=== PATIENT | female | born 1940 | race African-American/Black ===

== ENCOUNTER 2018-07-11 02:38 | Emergency (ER) | payer OTHER ==
[~2018-07-11] VITALS: Ht 154.9 cm; Wt 102.1 kg
[~2018-07-11 02:38] MED LIST: ACETAMINOPHEN-1 EAC1 ORAL; ASPIR 8181 MG ORAL; BENAZEPRIL HCL40 MG ORAL; CATAPRES-TTS 31 EACH TDERMAL; DOXAZOSIN MESYLA1 MG ORAL; FUROSEMIDE20 M1 ORAL; LEVAQUIN500 MG ORAL; LEVOTHYROXINE25 MCG ORAL; PHENAZOPYRIDIN100 MG ORAL; STARLIX60 MG ORAL; TANZEUM30 MG/0.5 SQ
--- NOTE | 2018-07-11 02:50 | NUR ---
ED Nurse Note: PATIENT AMBULATED WITH WALKER TO ED C/O DIZZINESS X 2. REPORTS NAUSEA. DENIES VOMITTING OR DIARRHEA
[2018-07-11 02:53] VITALS: BP 147/66
--- NOTE | 2018-07-11 03:05 | Emergency Room Report ---
History of Present Illness General Chief Complaint: Dizziness Source: Patient Present Illness [facility] This is a 78-year-old female with history diabetes high blood pressure. She presents with chief complaint of dizziness. Onset for 2 days. She complaining of feeling lightheaded and room spinning. Nausea and vomiting. No diarrhea. No fever or chills. No focal deficit. Nothing made it better. Standing up and walking made it worse. Allergies: Coded Allergies: No Known Allergies (Unverified , 02/03/16) Patient History Past Medical History: see triage record, old chart reviewed, DM, HTN Past Surgical History: other Pertinent Family History: none Social History: Denies: smoking Now: No Immunizations: other Reviewed Nursing Documentation: PMH: Agreed; PSxH: Agreed Nursing Documentation-PMH Past Medical History: No History, Except For Hx Hypertension: Yes Hx Diabetes: Yes Review of Systems Eye: Denies: eye pain, blurred vision ENT: Denies: ear pain, nose congestion, throat swelling Respiratory: Denies: cough, shortness of breath Cardiovascular: Denies: chest pain, palpitations Gastrointestinal: Reports: nausea, vomiting; Denies: abdominal pain, diarrhea Musculoskeletal: Denies: back pain, joint pain Skin: Denies: rash Neurological: Reports: dizziness; Denies: headache, numbness Endocrine: Denies: increased thirst, increased urine Hematologic/Lymphatic: Denies: easy bruising All Other Systems: negative except mentioned in HPI Physical Exam Vital Signs Date Time Temp Pulse Resp B/P (MAP) Pulse Ox O2 Delivery O2 Flow Rate FiO2 07/11/18 02:47 97.9 80 19 95 Room Air 07/11/18 02:53 147/66 vital signs unremarkable Sp02 EP Interpretation: reviewed, normal General Appearance: well appearing, no apparent distress, alert Head: normocephalic, atraumatic Eyes: bilateral eye PERRL, bilateral eye EOMI ENT: hearing grossly normal, normal pharynx Neck: full range of motion, supple, no meningismus Respiratory: chest non-tender, lungs clear, normal breath sounds Cardiovascular #1: regular rate, rhythm, no murmur Gastrointestinal: normal bowel sounds, non tender, no mass, no organomegaly, no bruit, non-distended Musculoskeletal: back normal, gait/station normal, normal range of motion Psychiatric: mood/affect normal Skin: warm/dry Medical Decision Making Diagnostic Impression: Primary Impression: Dizziness of unknown cause ER Course Patient presents with dizziness and vomiting. This may be secondary to vertigo versus dehydration. He felt better now. CT scan is negative of the head. No evidence of TIA or CVA. No evidence of any obstruction. We'll discharge home. Rhythm Strip Diag. Results EP Interpretation: yes Rate: 80 Rhythm: NSR, no PVC's, no ectopy CT/MRI/US Diagnostic Results CT/MRI/US Diagnostic Results : Imaging Test Ordered: CT head Impression negative per radiologist Last Vital Signs Date Time Temp Pulse Resp B/P (MAP) Pulse Ox O2 Delivery O2 Flow Rate FiO2 07/11/18 02:53 97.9 76 19 147/66 95 Room Air Status: improved Disposition: HOME, SELF-CARE Condition: Stable Scripts Meclizine Hcl* (MECLIZINE*) 25 Mg Tablet 25 MG ORAL THREE TIMES A DAY, #30 TAB Prov: Michael Mahan MD 07/11/18 Patient Instructions: Dizziness Additional Instructions: Increase fluids. Follow-up with your doctor in 7 days. Return if worse. Michael Mahan MD July 11, 2018 03:05
--- NOTE | 2018-07-11 03:15 | NUR ---
ED Nurse Note: IV ACCESS ESTABLISHED. BLOOD AND URINE COLLECTED; SENT DOWN TO LAB.
[2018-07-11 03:41] LABS: APPEARANCE,URINE CLEAR; BILIRUBIN, URINE NEGATIVE (NEGATIVE); COLOR,URINE PALE YELLOW; GLUCOSE, URINE (UA) 4+ (NEGATIVE); KETONES,URINE NEGATIVE (NEGATIVE); LEUKOCYTE ESTERASE ,URINE 1+ (NEGATIVE); NITRITE,URINE NEGATIVE (NEGATIVE); PH,URINE 6 (4.5-8.0); PROTEIN,URINE NEGATIVE (NEGATIVE); UROBILINOGEN,URINE NORMAL MG/DL (0.0-1.0)
[2018-07-11 03:42] LABS: BASOPHILS % (AUTO) 0.8 % (0.0-2.0); EOSINOPHILS % (AUTO) 1.1 % (0.0-3.0); HEMATOCRIT 36.8 % (37.0-47.0); HEMOGLOBIN 12.2 G/DL (12.0-16.0); LYMPHOCYTES % (AUTO) 30.9 % (20.0-45.0); MEAN CORPUSCULAR VOLUME 82 FL (80-99); NEUTROPHILS % (AUTO) 58.3 % (45.0-75.0); PLATELET COUNT 290 K/UL (150-450); WHITE BLOOD COUNT 7.1 K/UL (4.8-10.8)
[2018-07-11 03:50] LABS: ANION GAP 9 mmol/L (5-15); BLOOD UREA NITROGEN 20 mg/dL (7-18); CARBON DIOXIDE 29 MMOL/L (21-32); CHLORIDE 101 MMOL/L (98-107); CREATININE 1.1 MG/DL (0.55-1.30); SODIUM 139 MMOL/L (136-145)
[2018-07-11] MEDS ORDERED: MECLIZINE HCL25 MG ORAL (04:06)
--- NOTE | 2018-07-11 04:45 | NUR ---
ER DISCHARGE NOTE: Patient is cleared to be discharged per ERMD, pt is aox4, on room air, with stable vital signs. accompanied by family member. pt was given dc and prescription instructions, pt was able to verbalize understanding, pt id band and iv site removed without complications. pt is able to ambulate with walker. pt took all belongings.
[2018-07-11 04:50] VITALS: BP 147/66
--- NOTE | 2018-07-11 09:54 | Diagnostic Imaging Report ---
Indication: Headache dizziness Technique: Contiguous 5 mm thick transaxial imaging of the head obtained in a Siemens Sensation [address] scanner. Soft tissue and bone windows generated. Automatic Exposure Control was utilized. Total Dose length Product (DLP): [address] Dose Index Volume (CTDIvol): 70.38 mGy Comparison: none Findings: There is mild prominence of the ventricles, basal cisterns, and cerebral sulci consistent with atrophy. Mild, nonspecific, white matter hypoattenuation is noted throughout the brain consistent with chronic small vessel disease. There is no midline shift, edema, acute hemorrhage, mass effect, or abnormal extra-axial fluid collections. Bones and extra osseous soft tissues are unremarkable. Impression: No acute intracranial bleed, mass effect or edema. Mild atrophy of the brain. Nonspecific white matter hypoattenuation probably due to chronic small vessel disease. [facility] has communicated the preliminary results to the Emergency Department. Their findings are largely concordant with this report. The CT scanner at [facility] is accredited by the [employer] and the scans are performed using dose optimization techniques as appropriate to a performed exam including Automatic Exposure control.
== END 2018-07-11 04:45 | disposition home or self-care (01) ==
LOC: EMR 03:05
DX: R42 Dizziness and giddiness (principal); E11.9 Type 2 diabetes mellitus without complications; I10 Essential (primary) hypertension
CPT/HCPCS: 36415; 70450; 80048; 81001; 85025; 96361; 96374; 99284; J2405

== ENCOUNTER 2018-11-09 09:52 | Emergency (ER) | payer OTHER ==
[~2018-11-09] VITALS: Ht 154.9 cm; Wt 104.3 kg
[~2018-11-09 09:52] MED LIST changes: +MECLIZINE HCL25 MG ORAL
[2018-11-09 10:12] VITALS: BP 160/69
[2018-11-09 11:17] LABS: BASOPHILS % (AUTO) 1.8 % (0.0-2.0); EOSINOPHILS % (AUTO) 1.2 % (0.0-3.0); HEMATOCRIT 38.2 % (37.0-47.0); HEMOGLOBIN 12.2 G/DL (12.0-16.0); LYMPHOCYTES % (AUTO) 37.1 % (20.0-45.0); MEAN CORPUSCULAR VOLUME 86 FL (80-99); MONOCYTES % (AUTO) 8.7 % (1.0-10.0); NEUTROPHILS % (AUTO) 51.3 % (45.0-75.0); PLATELET COUNT 237 K/UL (150-450); RED BLOOD COUNT 4.45 M/UL (4.20-5.40); RED CELL DISTRIBUTION WIDTH 11.7 % (11.6-14.8); WHITE BLOOD COUNT 5.5 K/UL (4.8-10.8)
[2018-11-09 11:25] LABS: ANION GAP 6 mmol/L (5-15); BLOOD UREA NITROGEN 16 mg/dL (7-18); CALCIUM 9.5 MG/DL (8.5-10.1); CARBON DIOXIDE 29 MMOL/L (21-32); CHLORIDE 104 MMOL/L (98-107); POTASSIUM 4.2 MMOL/L (3.5-5.1); SODIUM 139 MMOL/L (136-145)
[2018-11-09 11:30] LABS: ALANINE AMINOTRANSFERASE 15 U/L (12-78); ALBUMIN 3.4 G/DL (3.4-5.0); ALBUMIN/GLOBULIN RATIO 0.8 (1.0-2.7); ALKALINE PHOSPHATASE 101 U/L (46-116); ASPARTATE AMINO TRANSFERASE 16 U/L (15-37); BILIRUBIN,TOTAL 0.5 MG/DL (0.2-1.0); CHOLESTEROL 140 MG/DL (< 200); HDL CHOLESTEROL 54 MG/DL (40-60); TRIGLYCERIDES 80 MG/DL (30-150)
[2018-11-09] MEDS ORDERED: AMLODIPINE BESYL5 MG ORAL (11:30)
[2018-11-09] MEDS ORDERED: PANTOPRAZOLE SO40 MG ORAL (11:30)
[2018-11-09] MEDS ORDERED: ATORVASTATIN CA40 MG ORAL (11:30)
[2018-11-09] MEDS ORDERED: VITAMIN D1000 UNI1 ORAL (11:30)
[2018-11-09] MEDS ORDERED: CATAPRES0.1 MG ORAL (11:30)
[2018-11-09] MEDS ORDERED: LETROZOLE2.5 MG ORAL (11:30)
[2018-11-09] MEDS ORDERED: METFORMIN HCL1000 M1 ORAL (11:30)
[2018-11-09] MEDS ORDERED: Meclizine 25mg tab ORAL ONE (11:45)
--- NOTE | 2018-11-09 12:02 | Diagnostic Imaging Report ---
Indication: Headache dizziness Technique: Contiguous 5 mm thick transaxial imaging of the head obtained in a Siemens Sensation [address] scanner. Soft tissue and bone windows generated. Automatic Exposure Control was utilized. Total Dose length Product (DLP): [address] Dose Index Volume (CTDIvol): 69 mGy Comparison: 07/11/2018 Findings: There is mild prominence of the ventricles, basal cisterns, and cerebral sulci consistent with atrophy. Mild, nonspecific, white matter hypoattenuation is noted throughout the brain consistent with chronic small vessel disease. There is no midline shift, edema, acute hemorrhage, mass effect, or abnormal extra-axial fluid collections. There is an old fracture of the right medial orbital wall. Impression: No acute intracranial bleed, mass effect or edema. Mild atrophy of the brain. Nonspecific white matter hypoattenuation probably due to chronic small vessel disease. No change from the prior study The CT scanner at [facility] is accredited by the [employer] and the scans are performed using dose optimization techniques as appropriate to a performed exam including Automatic Exposure control.
[2018-11-09 13:03] VITALS: BP 168/77
--- NOTE | 2018-11-09 13:51 | Emergency Room Report ---
History of Present Illness General Chief Complaint: Dizziness Source: Patient (Janet Webster DO) Present Illness HPI This patient states that for the past 4 days she has had a spinning sensation in her head. She states that the symptoms are worse when she moves her head or lays flat or tries to stand up. She states that 2 months ago she had a similar episode and was diagnosed with dehydration. She denies trauma. She denies headache. She she states that when the symptoms occur she does have nausea but denies vomiting. She states she also feels off balance. She denies weakness. She denies tingling or numbness. She denies recent illness. She denies fever or chills. She denies headache or neck pain. She has no other complaints. (Janet Webster DO) Allergies: Coded Allergies: No Known Allergies (Unverified , 02/03/16) Patient History Past Medical History: see triage record, DM, HTN, other - HLP Past Surgical History: other - R. Masectomy Social History: Denies: smoking, alcohol use, drug use Now: No Reviewed Nursing Documentation: PMH: Agreed; PSxH: Agreed (Janet Webster DO) Nursing Documentation-PMH Past Medical History: No History, Except For Hx Hypertension: Yes Hx Diabetes: Yes (Janet Webster DO) Review of Systems All Other Systems: negative except mentioned in HPI (Janet Webster DO) Physical Exam Vital Signs Date Time Temp Pulse Resp B/P (MAP) Pulse Ox O2 Delivery O2 Flow Rate FiO2 11/09/18 09:59 98.8 86 20 132/70 (90) 96 Room Air Sp02 EP Interpretation: reviewed, normal General Appearance: no apparent distress, alert, GCS 15, non-toxic Head: normocephalic, atraumatic Eyes: bilateral eye normal inspection, bilateral eye PERRL ENT: hearing grossly normal, normal pharynx, no angioedema, normal voice Neck: full range of motion, supple/symm/no masses Respiratory: chest non-tender, lungs clear, normal breath sounds, no respiratory distress, no retraction, no accessory muscle use, speaking full sentences Cardiovascular #1: regular rate, rhythm, no edema Gastrointestinal: normal bowel sounds, non tender, soft, non-distended, no guarding, no rebound Rectal: deferred Musculoskeletal: back normal, normal range of motion, non-tender Neurologic: alert, oriented x3, responsive, motor strength/tone normal, sensory intact, speech normal Psychiatric: judgement/insight normal, memory normal, mood/affect normal, no suicidal/homicidal ideation Skin: no rash, rash (Janet Webster DO) Medical Decision Making Medicare Attestation (Janet Webster DO) Diagnostic Impression: Primary Impression: Vertigo ER Course This patient has a physical exam at presentation consistent with benign positional vertigo. Other considerations include labyrinthitis, Mnire's disease, central vertigo. The patient's symptoms are short and episodic and have been positional. There are no central neurologic findings on physical exam which is very reassuring that this is not a posterior circulation stroke. However, given the patient's age and recent development of vertigo 2 months ago , I felt that I should rule out posterior circulation CVA. MRI of the brain was obtained to further assess this and is pending at the time of turn-over to Dr. Wasserman. Laboratory workup, EKG are unremarkable. Anticipate d/c home if MRI negative, unless vertigo uncontrolled. I will treat the patient with meclizine and have the patient follow up closely with the primary care physician. Laboratory Tests Test 11/09/18 10:53 White Blood Count 5.5 K/UL (4.8-10.8) Red Blood Count 4.45 M/UL (4.20-5.40) Hemoglobin 12.2 G/DL (12.0-16.0) Hematocrit 38.2 % (37.0-47.0) Mean Corpuscular Volume 86 FL (80-99) Mean Corpuscular Hemoglobin 27.4 PG (27.0-31.0) Mean Corpuscular Hemoglobin Concent 31.8 G/DL (32.0-36.0) L Red Cell Distribution Width 11.7 % (11.6-14.8) Platelet Count 237 K/UL (150-450) Mean Platelet Volume 8.5 FL (6.5-10.1) Neutrophils (%) (Auto) 51.3 % (45.0-75.0) Lymphocytes (%) (Auto) 37.1 % (20.0-45.0) Monocytes (%) (Auto) 8.7 % (1.0-10.0) Eosinophils (%) (Auto) 1.2 % (0.0-3.0) Basophils (%) (Auto) 1.8 % (0.0-2.0) Prothrombin Time 10.6 SEC (9.30-11.50) Prothrombin Time INR 1.0 (0.9-1.1) PTT 24 SEC (23-33) Sodium Level 139 MMOL/L (136-145) Potassium Level 4.2 MMOL/L (3.5-5.1) Chloride Level 104 MMOL/L (98-107) Carbon Dioxide Level 29 MMOL/L (21-32) Anion Gap 6 mmol/L (5-15) Blood Urea Nitrogen 16 mg/dL (7-18) Creatinine 1.0 MG/DL (0.55-1.30) Estimate Glomerular Filtration Rate mL/min (>60) Glucose Level 191 MG/DL (74-106) H Calcium Level 9.5 MG/DL (8.5-10.1) Total Bilirubin 0.5 MG/DL (0.2-1.0) Aspartate Amino Transferase (AST) 16 U/L (15-37) Alanine Aminotransferase (ALT) 15 U/L (12-78) Alkaline Phosphatase 101 U/L (46-116) Total Protein 7.9 G/DL (6.4-8.2) Albumin 3.4 G/DL (3.4-5.0) Globulin 4.5 g/dL Albumin/Globulin Ratio 0.8 (1.0-2.7) L Triglycerides Level 80 MG/DL (30-150) Cholesterol Level 140 MG/DL (< 200) LDL Cholesterol 69 mg/dL (<100) HDL Cholesterol 54 MG/DL (40-60) Cholesterol/HDL Ratio 2.6 (3.3-4.4) L (Coliberryo,Janet M. DO) ER Course 78-year-old female initially to be admitted for intractable vertigo, insurance refused to admit patient MRI brain is currently negative, vertigo symptoms have significantly improved Joint decision-making was made with patient to pursue outpatient follow-up patient was counseled disposition home with return precautions (Marshall Wasserman MD) EKG Diagnostic Results Rate: normal Rhythm: NSR ST Segments: no acute changes (Coliberryo,Janet M. DO) Rhythm Strip Diag. Results EP Interpretation: yes Rate: 70's Rhythm: NSR, no PVC's, no ectopy (Janet Webster DO) CT/MRI/US Diagnostic Results CT/MRI/US Diagnostic Results : Imaging Test Ordered: CT head, MRI Brain Impression Impression: No acute intracranial bleed, mass effect or edema. Mild atrophy of the brain. Nonspecific white matter hypoattenuation probably due to chronic small vessel disease. No change from the prior study MRI Brain: (Janet Webster DO) CT/MRI/US Diagnostic Results : Impression Procedure: MRI Brain no Contrast Indication: Vertigo Technique: The head was imaged in a 1.5 Ann magnet. Sequences obtained include sagittal and axial T1 FLAIR, axial T2 fast spin echo with fat saturation, axial T2* GRE, axial T2 FLAIR, diffusion and ADC map. Comparison: None Findings: There is mild prominence of the sulci, ventricles, and basal cisterns consistent with atrophy. Mild, nonspecific T2 hyperintensity noted within white matter. This may be due to chronic small vessel disease. There is no restricted diffusion. Deleon-white differentiation is normal. There is no mass effect, midline shift, edema, or hemorrhage. There are no abnormal extra- axial or intra-axial fluid collections. The corpus callosum is unremarkable. Empty sella noted. The brainstem and cerebellum are unremarkable. Bone marrow signal within the visualized osseous structures appears age appropriate and unremarkable otherwise. Impression: No acute intracranial findings. Mild atrophy and evidence of chronic small vessel disease involving white matter tracts. Empty sella, normal variant. Dictated By: Darin Silverman MD Electronically Signed By: Darin Silverman MD Signed Date/Time 11/09/18 8143 CC: Janet Webster DO (Marshall Wasserman MD) Last Vital Signs Date Time Temp Pulse Resp B/P (MAP) Pulse Ox O2 Delivery O2 Flow Rate FiO2 11/09/18 13:03 98.5 75 17 168/77 100 Room Air (Janet Webster DO) Disposition: HOME, SELF-CARE Condition: Stable Scripts Meclizine Hcl* (MECLIZINE*) 25 Mg Tablet 25 MG ORAL THREE TIMES A DAY, #30 TAB Prov: Marshall Wasserman MD 11/09/18 Referrals: [facility] Efren Stoll. [facility] Patient Instructions: Vertigo Additional Instructions: The patient was provided with discharge instructions, notified to follow-up with a primary care doctor and or specialist in the next 24-48 hours, and to return to the ED if they have worsening of their symptoms. Please note that this report is being documented using DRAGON technology. This can lead to erroneous entry secondary to incorrect interpretation by the dictating instrument. Janet Webster DO Nov 09, 2018 13:51 Marshall Wasserman MD Nov 09, 2018 16:40
[2018-11-09 16:03] VITALS: BP 157/94
--- NOTE | 2018-11-09 16:23 | Diagnostic Imaging Report ---
Indication: Vertigo Technique: The head was imaged in a 1.5 Ann magnet. Sequences obtained include sagittal and axial T1 FLAIR, axial T2 fast spin echo with fat saturation, axial T2* GRE, axial T2 FLAIR, diffusion and ADC map. Comparison: None Findings: There is mild prominence of the sulci, ventricles, and basal cisterns consistent with atrophy. Mild, nonspecific T2 hyperintensity noted within white matter. This may be due to chronic small vessel disease. There is no restricted diffusion. Deleon-white differentiation is normal. There is no mass effect, midline shift, edema, or hemorrhage. There are no abnormal extra-axial or intra-axial fluid collections. The corpus callosum is unremarkable. Empty sella noted. The brainstem and cerebellum are unremarkable. Bone marrow signal within the visualized osseous structures appears age appropriate and unremarkable otherwise. Impression: No acute intracranial findings. Mild atrophy and evidence of chronic small vessel disease involving white matter tracts. Empty sella, normal variant.
[2018-11-09] MEDS ORDERED: MECLIZINE HCL25 MG ORAL (16:44)
[2018-11-09] MEDS ORDERED: Dicyclomine HCl 10mg/5ml oral soln ORAL ONE (17:00)
[2018-11-09] MEDS ORDERED: Mylanta II UD 30ml ORAL ONE (17:00)
[2018-11-09] MEDS ORDERED: Lidocaine 2% Visc 15ml soln ORAL ONE (17:00)
[2018-11-09 17:21] VITALS: BP 152/86
== END 2018-11-09 17:22 | disposition home or self-care (01) ==
LOC: EMR 10:42
DX: R42 Dizziness and giddiness (principal); I10 Essential (primary) hypertension; E11.9 Type 2 diabetes mellitus without complications; Z90.11 Acquired absence of right breast and nipple; E78.5 Hyperlipidemia, unspecified; R11.0 Nausea
CPT/HCPCS: 36415; 70450; 70551; 80053; 80061; 85025; 85610; 85730; 93005; 96360; 99284